=== PATIENT | male | born 1995 | race Caucasian/White ===

== ENCOUNTER → 2016-11-13 | Outpatient (CLI) | payer BC, OTHER ==
[~2016-11-13] MED LIST: AUGMENTIN PO
== END | disposition home or self-care (01) ==
LOC: C.RDSM 14:51
PROVIDERS: ATTEND Family Medicine
DX: S92.902A Unspecified fracture of left foot, initial encounter for closed fracture (principal); X58.XXXA Exposure to other specified factors, initial encounter

== ENCOUNTER → 2016-12-04 | Outpatient (CLI) | payer OTHER | END | disposition home or self-care (01) | LOC: C.RDSM 14:28 | PROVIDERS: ATTEND Family Medicine | DX: S92.902A Unspecified fracture of left foot, initial encounter for closed fracture (principal); X58.XXXA Exposure to other specified factors, initial encounter ==